=== PATIENT | male | born 1965 | race Caucasian/White ===

== ENCOUNTER 2019-05-26 19:42 | Emergency (ER) | payer BC ==
[~2019-05-26] VITALS: Ht 180.3 cm; Wt 102.1 kg
--- NOTE | 2019-05-26 19:53 | NUR ---
ER at bedside examining patient.
--- NOTE | 2019-05-26 19:53 | NUR ---
Patient to ER bed HW1 to gown for evaluation. Side rails up.
--- NOTE | 2019-05-26 19:54 | NUR ---
Pt awake, alert oriented x4. Pt brought to ED by self. Pt states chief complaint of pelvic and scrotal pain on L side chronic and progressively worsening over past two years. Pt states that he has sharp increase in pain today, difficult to walk due to pain. Pt denies chest pain, nausea, vomiting, diarrhea, shortness of breath. Pt denies urinary retention, pain on urination, abdominal pain. Pt denies any other medical complaint at this time. Pt resting in ED bed.VSS
[2019-05-26 19:55] VITALS: BP_SYST 118
[2019-05-26] MEDS ORDERED: KETOROLAC TROMETHAMINE 60 MG/2 ML VIAL IM ONE (20:00)
[2019-05-26 20:50] VITALS: BP_SYST 118
--- NOTE | 2019-05-26 20:50 | NUR ---
Patient given written and verbal discharge instructions and verbalizes understanding. ER MD discussed with patient the results and treatment provided. Patient in stable condition. ID arm band removed. No IV Rx of Naprosyn given. Patient educated on pain management and to follow up with PMD. Pain Scale 0/10. Opportunity for questions provided and answered. Medication side effect fact sheet provided.
== END 2019-05-26 20:50 | disposition home or self-care (01) ==
LOC: SED 19:42
DX: K40.90 Unilateral inguinal hernia, without obstruction or gangrene, not specified as recurrent (principal); F17.290 Nicotine dependence, other tobacco product, uncomplicated; Z71.6 Tobacco abuse counseling
CPT/HCPCS: 96372; 99283; J1885